=== PATIENT | male | born 1930 | race Caucasian/White ===

== ENCOUNTER 2016-11-06 17:10 | Inpatient (IN) | payer MEDICARE, OTHER ==
[2016-11-06] MEDS ORDERED: VITAMIN B-12250 MC2 PO (19:02)
[2016-11-06] MEDS ORDERED: LASIX40 M1 PO (19:04)
[2016-11-06] MEDS ORDERED: LOPERAMIDE2 M2 PO (19:04)
[2016-11-06] MEDS ORDERED: LYRICA50 MG/CAP PO (19:05)
[2016-11-06] MEDS ORDERED: PROTONIX40 M2 PO (19:06)
[2016-11-06] MEDS ORDERED: ROCALTROL0.25 MC1 PO (19:06)
[2016-11-06] MEDS ORDERED: PROSCAR5 M1 PO (19:07)
[2016-11-06] MEDS ORDERED: NORVASC5 M2 PO (19:07)
[2016-11-06] MEDS ORDERED: METOPROLOL SUCC50 M1 PO (19:08)
[2016-11-06] MEDS ORDERED: PREDNISONE5 M1 PO (19:08)
[2016-11-06] MEDS ORDERED: COUMADIN2 M1 PO (19:09)
[2016-11-06] MEDS ORDERED: RANEXA500 M1 PO (19:09)
[2016-11-06] MEDS ORDERED: GLYNASE3 M1 PO (19:10)
[2016-11-06] MEDS ORDERED: LIPITOR20 M1 PO (19:10)
[2016-11-06] MEDS ORDERED: NORVASC10 M2 PO (19:11)
[2016-11-06] MEDS ORDERED: ISOSORBIDE MONO30 M4 PO (19:11)
[2016-11-06] MEDS ORDERED: ASPIRIN81 M1 PO (19:11)
[2016-11-06 20:44] LABS: ABG CO2 ARTERIAL 24 mmol/L (21-27); ARTERIAL BLD GAS O2 SATURATION 91 % (95-98); ARTERIAL BLOOD GAS PCO2 35 mmHg (32-45); ARTERIAL PO2 61 mmHg (70-100); BICARBONATE 23 mmol/L (21-28); BLOOD GAS BASE EXCESS -1 mM/L (-/+3); PH 7.43 Units (7.35-7.45)
[2016-11-06 21:53] LABS: ABG CO2 ARTERIAL 24 mmol/L (21-27); ARTERIAL BLD GAS O2 SATURATION 96 % (95-98); ARTERIAL BLOOD GAS PCO2 35 mmHg (32-45); ARTERIAL PO2 78 mmHg (70-100); BICARBONATE 23 mmol/L (21-28); BLOOD GAS BASE EXCESS 0 mM/L (-/+3); PH 7.44 Units (7.35-7.45)
[2016-11-06 22:09] LABS: BASO % 0.1 % (0-2); EOS % 0.1 % (0-7); HCT-HEMATOCRIT 37.4 % (36.0-53.5); HGB-HEMOGLOBIN 12.3 gm/dl (13.5-17.0); IMMATURE GRANULOCYTES ABSOLUTE 0.03 tho/cmm (0-0.03); IMMATURE GRANULOCYTES PERCENT 0.2 % (0-0.3); LYMPH % 3.6 % (20-45); LYMPH ABSOLUTE COUNT 0.5 tho/cmm (0.8-4.5); MCH (MEAN CORPUSCULAR HGB) 30.3 pg (28.0-32.0); MCHC MEAN CORPUSCULAR HGB CONC 32.9 % (32.0-36.0); MCV (MEAN CELL VOLUME) 92.1 fl (82.0-96.0); MEAN PLATELET VOLUME 11.4 cmc (9.4-12.4); MONO % 5.4 % (0-12); MONOCYTE ABSOLUTE COUNT 0.7 tho/cmm (0.0-1.2); NEUTROPHIL ABSOLUTE COUNT 11.2 tho/cmm (1.6-8.0); NEUTROPHIL-AUTOMATED 11.2 tho/cmm (1.6-8.0); NEUTROPHILS % 90.6 % (40-80); PLATELET COUNT 173 tho/cmm (150-450); RED BLOOD COUNT 4.06 mil/cmm (4.40-5.70); RED CELL DISTRIBUTION WIDTH 16.4 % (12.4-16.4); WHITE BLOOD COUNT 12.3 tho/cmm (4.0-10.0)
[2016-11-06 22:34] LABS: ALB/GLOB RATIO 0.9 (0.8-2.0); ALBUMIN 3.1 g/dl (3.5-5.0); ALKALINE PHOSPHATASE 57 U/L (33-138); ALT/SGPT 18 U/L (12-78); ANION GAP 12 mmol/L (0-20); AST/SGOT 18 U/L (10-40); BILIRUBIN,TOTAL 1.4 mg/dl (0.0-1.5); BLOOD UREA NITROGEN 53 mg/dl (6-24); CALCIUM 8.2 mg/dl (8.5-10.5); CARBON DIOXIDE-VENOUS 24 mmol/L (22-32); CHLORIDE 104 mmol/l (96-110); CREATININE 3.47 mg/dl (0.60-1.30); GLUCOSE 173 mg/dL (70-110); POTASSIUM 4.4 mmol/L (3.7-5.1); SODIUM 136 mmol/L (135-145); eGFR VALUE FOR BLACK 17 mL/Min
[2016-11-06 22:43] LABS: PROCALCITONIN 0.18 ng/ml (0.05-0.09)
[2016-11-07 02:13] LABS: EOS % 0.2 % (0-7); HCT-HEMATOCRIT 37.4 % (36.0-53.5); HGB-HEMOGLOBIN 12.4 gm/dl (13.5-17.0); IMMATURE GRANULOCYTES ABSOLUTE 0.02 tho/cmm (0-0.03); IMMATURE GRANULOCYTES PERCENT 0.2 % (0-0.3); LYMPH % 1.4 % (20-45); LYMPH ABSOLUTE COUNT 0.2 tho/cmm (0.8-4.5); MCH (MEAN CORPUSCULAR HGB) 30.5 pg (28.0-32.0); MCHC MEAN CORPUSCULAR HGB CONC 33.2 % (32.0-36.0); MCV (MEAN CELL VOLUME) 92.1 fl (82.0-96.0); MEAN PLATELET VOLUME 11.3 cmc (9.4-12.4); MONO % 0.6 % (0-12); MONOCYTE ABSOLUTE COUNT 0.1 tho/cmm (0.0-1.2); NEUTROPHIL ABSOLUTE COUNT 12.1 tho/cmm (1.6-8.0); NEUTROPHIL-AUTOMATED 12.1 tho/cmm (1.6-8.0); NEUTROPHILS % 97.6 % (40-80); PLATELET COUNT 171 tho/cmm (150-450); PROTHROMBIN TIME 65.4 SECONDS (9.0-13.6); RED BLOOD COUNT 4.06 mil/cmm (4.40-5.70); RED CELL DISTRIBUTION WIDTH 16.6 % (12.4-16.4); WHITE BLOOD COUNT 12.4 tho/cmm (4.0-10.0)
[2016-11-07 02:24] LABS: ANION GAP 15 mmol/L (0-20); BLOOD UREA NITROGEN 56 mg/dl (6-24); CALCIUM 8.4 mg/dl (8.5-10.5); CARBON DIOXIDE-VENOUS 24 mmol/L (22-32); CHLORIDE 105 mmol/l (96-110); CHOLESTEROL 102 mg/dl (120-200); CREATININE 3.56 mg/dl (0.60-1.30); GLUCOSE 211 mg/dL (70-110); HDL CHOLESTEROL 44 mg/dl (40-60); LDL CHOLESTEROL 33 mg/dl (0-99); MAGNESIUM 2.2 mg/dl (1.3-2.6); POTASSIUM 4.5 mmol/L (3.7-5.1); SODIUM 139 mmol/L (135-145); TRIGLYCERIDES 126 mg/dl (<149); VLDL 25 mg/dl (0-30); eGFR VALUE FOR BLACK 17 mL/Min
[2016-11-07 02:25] LABS: INR 5.4 INR (0.9-1.1)
[2016-11-07 08:10] LABS: URINE APPEARANCE CLEAR; URINE BILIRUBIN NEGATIVE (NEG); URINE BLOOD NEGATIVE (NEG); URINE COLOR YELLOW; URINE GLUCOSE (UA) SMALL (NEG); URINE KETONE NEGATIVE (NEG); URINE LEUKOCYTE ESTERASE NEGATIVE (NEG); URINE NITRITE NEGATIVE (NEG); URINE PROTEIN MODERATE (NEG)
[2016-11-07 08:52] LABS: URINE AMORPHOUS 1+; URINE EPITHELIAL CELLS 0-1 /[HPF] (0-10); URINE RBC 0 /[HPF] (0-5); URINE WBC 0 /[HPF] (0-5)
[2016-11-07 20:54] LABS: PROCALCITONIN 0.16 ng/ml (0.05-0.09)
[2016-11-08 05:52] LABS: HCT-HEMATOCRIT 33.2 % (36.0-53.5); HGB-HEMOGLOBIN 10.9 gm/dl (13.5-17.0); IMMATURE GRANULOCYTES ABSOLUTE 0.07 tho/cmm (0-0.03); IMMATURE GRANULOCYTES PERCENT 0.4 % (0-0.3); LYMPH % 2.1 % (20-45); LYMPH ABSOLUTE COUNT 0.4 tho/cmm (0.8-4.5); MCHC MEAN CORPUSCULAR HGB CONC 32.8 % (32.0-36.0); MCV (MEAN CELL VOLUME) 91.5 fl (82.0-96.0); MEAN PLATELET VOLUME 11.8 cmc (9.4-12.4); MONO % 1.3 % (0-12); MONOCYTE ABSOLUTE COUNT 0.3 tho/cmm (0.0-1.2); NEUTROPHILS % 96.2 % (40-80); PLATELET COUNT 187 tho/cmm (150-450); RED BLOOD COUNT 3.63 mil/cmm (4.40-5.70); RED CELL DISTRIBUTION WIDTH 16.7 % (12.4-16.4)
[2016-11-08 06:01] LABS: WHITE BLOOD COUNT 19.7 tho/cmm (4.0-10.0)
[2016-11-08 06:08] LABS: ALBUMIN 2.8 g/dl (3.5-5.0); ANION GAP 15 mmol/L (0-20); BLOOD UREA NITROGEN 80 mg/dl (6-24); CALCIUM 8.1 mg/dl (8.5-10.5); CARBON DIOXIDE-VENOUS 22 mmol/L (22-32); CHLORIDE 102 mmol/l (96-110); CREATININE 4.39 mg/dl (0.60-1.30); GLUCOSE 252 mg/dL (70-110); MAGNESIUM 2.5 mg/dl (1.3-2.6); PHOSPHOROUS 4.7 mg/dl (2.5-4.9); POTASSIUM 4.3 mmol/L (3.7-5.1); SODIUM 135 mmol/L (135-145); eGFR VALUE FOR BLACK 13 mL/Min
[2016-11-08 06:11] LABS: PROTHROMBIN TIME 50.6 SECONDS (9.0-13.6)
[2016-11-08 06:12] LABS: INR 4.2 INR (0.9-1.1)
[2016-11-09 04:36] LABS: HCT-HEMATOCRIT 32.3 % (36.0-53.5); HGB-HEMOGLOBIN 10.7 gm/dl (13.5-17.0); IMMATURE GRANULOCYTES ABSOLUTE 0.07 tho/cmm (0-0.03); IMMATURE GRANULOCYTES PERCENT 0.3 % (0-0.3); LYMPH % 3.2 % (20-45); LYMPH ABSOLUTE COUNT 0.7 tho/cmm (0.8-4.5); MCH (MEAN CORPUSCULAR HGB) 30.2 pg (28.0-32.0); MCHC MEAN CORPUSCULAR HGB CONC 33.1 % (32.0-36.0); MCV (MEAN CELL VOLUME) 91.2 fl (82.0-96.0); MEAN PLATELET VOLUME 11.2 cmc (9.4-12.4); MONOCYTE ABSOLUTE COUNT 0.4 tho/cmm (0.0-1.2); NEUTROPHIL ABSOLUTE COUNT 19.2 tho/cmm (1.6-8.0); NEUTROPHIL-AUTOMATED 19.2 tho/cmm (1.6-8.0); NEUTROPHILS % 94.5 % (40-80); PLATELET COUNT 186 tho/cmm (150-450); RED BLOOD COUNT 3.54 mil/cmm (4.40-5.70); RED CELL DISTRIBUTION WIDTH 16.7 % (12.4-16.4); WHITE BLOOD COUNT 20.3 tho/cmm (4.0-10.0)
[2016-11-09 04:48] LABS: PROTHROMBIN TIME 48.2 SECONDS (9.0-13.6)
[2016-11-09 04:58] LABS: ALBUMIN 2.8 g/dl (3.5-5.0); ANION GAP 15 mmol/L (0-20); BLOOD UREA NITROGEN 96 mg/dl (6-24); CARBON DIOXIDE-VENOUS 23 mmol/L (22-32); CHLORIDE 104 mmol/l (96-110); CREATININE 4.52 mg/dl (0.60-1.30); GLUCOSE 164 mg/dL (70-110); SODIUM 138 mmol/L (135-145); eGFR VALUE FOR BLACK 13 mL/Min
[2016-11-09 05:18] LABS: PHOSPHOROUS 6.1 mg/dl (2.5-4.9)
[2016-11-10 05:01] LABS: HCT-HEMATOCRIT 34.8 % (36.0-53.5); HGB-HEMOGLOBIN 11.5 gm/dl (13.5-17.0); MCH (MEAN CORPUSCULAR HGB) 30.1 pg (28.0-32.0); MCV (MEAN CELL VOLUME) 91.1 fl (82.0-96.0); MEAN PLATELET VOLUME 11.6 cmc (9.4-12.4); PLATELET COUNT 204 tho/cmm (150-450); RED BLOOD COUNT 3.82 mil/cmm (4.40-5.70); RED CELL DISTRIBUTION WIDTH 16.8 % (12.4-16.4); WHITE BLOOD COUNT 14.2 tho/cmm (4.0-10.0)
[2016-11-10 05:11] LABS: ANION GAP 17 mmol/L (0-20); BLOOD UREA NITROGEN 94 mg/dl (6-24); CARBON DIOXIDE-VENOUS 25 mmol/L (22-32); CHLORIDE 104 mmol/l (96-110); CREATININE 4.36 mg/dl (0.60-1.30); GLUCOSE 82 mg/dL (70-110); PHOSPHOROUS 6.4 mg/dl (2.5-4.9); POTASSIUM 3.6 mmol/L (3.7-5.1); SODIUM 142 mmol/L (135-145); eGFR VALUE FOR BLACK 13 mL/Min
[2016-11-10 07:26] LABS: BAND % 2 % (0-20); BAND ABSOLUTE COUNT 0.3 tho/cmm (0-2.0); EOSINOPHIL % 2 % (0-7)
[2016-11-10 17:22] LABS: INR 4.1 INR (0.9-1.1); PROTHROMBIN TIME 50.1 SECONDS (9.0-13.6)
[2016-11-11 05:14] LABS: INR 4.2 INR (0.9-1.1); PROTHROMBIN TIME 51.5 SECONDS (9.0-13.6)
[2016-11-11 05:24] LABS: ANION GAP 14 mmol/L (0-20); BLOOD UREA NITROGEN 86 mg/dl (6-24); CALCIUM 7.6 mg/dl (8.5-10.5); CARBON DIOXIDE-VENOUS 26 mmol/L (22-32); CHLORIDE 106 mmol/l (96-110); CREATININE 4.07 mg/dl (0.60-1.30); POTASSIUM 3.5 mmol/L (3.7-5.1); SODIUM 142 mmol/L (135-145); eGFR VALUE FOR BLACK 14 mL/Min
[2016-11-11 05:29] LABS: GLUCOSE 133 mg/dL (70-110)
[2016-11-11] MEDS ORDERED: LASIX80 M1 PO (11:57)
[2016-11-11] MEDS ORDERED: MUCINEX600 M1 PO (12:01)
[2016-11-11] MEDS ORDERED: MIRALAX17 G2 PO (12:02)
[2016-11-11] MEDS ORDERED: GLYBURIDE2.5 M2 PO (12:07)
[2016-11-11] MEDS ORDERED: POTASSIUM CHLO20 ME3 PO (12:32)
[2016-11-11] MEDS ORDERED: LEVEMIR100 UNITS/ SC (12:35)
== END 2016-11-11 13:30 | DRG 280 ==
LOC: PCUB 17:10
PROVIDERS: Hospitalist; Internal Medicine; Internal Medicine Critical Care Medicine; Nurse Practitioner Family; ADMIT Internal Medicine Cardiovascular Disease
PROC: 5A09357 Assistance with Respiratory Ventilation, Less than 24 Consecutive Hours, Continuous Positive Airway Pressure (ICD-10-PCS; principal; 2016-11-06)
DX: I13.0 Hypertensive heart and chronic kidney disease with heart failure and stage 1 through stage 4 chronic kidney disease, or unspecified chronic kidney disease (principal); I50.33 Acute on chronic diastolic (congestive) heart failure; I21.4 Non-ST elevation (NSTEMI) myocardial infarction; J96.01 Acute respiratory failure with hypoxia; N18.4 Chronic kidney disease, stage 4 (severe); N17.9 Acute kidney failure, unspecified; I27.2 Other secondary pulmonary hypertension; E11.22 Type 2 diabetes mellitus with diabetic chronic kidney disease; I25.10 Atherosclerotic heart disease of native coronary artery without angina pectoris; Z95.1 Presence of aortocoronary bypass graft; I48.2 Chronic atrial fibrillation; Z79.01 Long term (current) use of anticoagulants; E78.5 Hyperlipidemia, unspecified; G47.33 Obstructive sleep apnea (adult) (pediatric); Z93.3 Colostomy status; Z85.46 Personal history of malignant neoplasm of prostate; Z85.038 Personal history of other malignant neoplasm of large intestine; M35.3 Polymyalgia rheumatica; Z79.82 Long term (current) use of aspirin; Z87.891 Personal history of nicotine dependence; D72.829 Elevated white blood cell count, unspecified; Z86.73 Personal history of transient ischemic attack (TIA), and cerebral infarction without residual deficits; Z66 Do not resuscitate; Z79.4 Long term (current) use of insulin; E66.9 Obesity, unspecified; Z68.30 Body mass index [BMI] 30.0-30.9, adult; E11.40 Type 2 diabetes mellitus with diabetic neuropathy, unspecified; I73.9 Peripheral vascular disease, unspecified; R05 Cough; Z51.5 Encounter for palliative care; K59.00 Constipation, unspecified; D64.9 Anemia, unspecified; Z79.52 Long term (current) use of systemic steroids
CPT/HCPCS: G8978-GP-CJ; G8979-GP-CI; J1815; J1940; J2405; J2930; J7512